=== PATIENT | female | born 1965 | race Caucasian/White ===

== ENCOUNTER → 2016-12-21 | Outpatient (CLI) | payer OTHER ==
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
== END | disposition home or self-care (01) ==
LOC: C.NEUR 21:00
PROVIDERS: ATTEND Family Medicine
DX: R06.83 Snoring (principal); E66.01 Morbid (severe) obesity due to excess calories; G47.00 Insomnia, unspecified

== ENCOUNTER → 2017-02-07 | Outpatient (CLI) | payer OTHER ==
--- NOTE | 2017-02-07 10:38 | DIAGNOSTIC IMAGING REPORT ---
DOUBLE CONTRAST UPPER GI SERIES CLINICAL HISTORY: Dysphagia. Recent esophageal dilatation. Hiatal hernia. COMPARISON STUDY: No priors. TECHNIQUE: A standard air contrast upper GI series was performed. Spot images of the esophagus and stomach were obtained in multiple obliquities both upright and prone. FINDINGS: The patient swallowed barium without difficulty. The esophagus is structurally normal without evidence of intrinsic or extrinsic mass. The esophageal mucosal pattern is normal. No gastroesophageal reflux was elicited by having the patient perform the Valsalva maneuver. The gastroesophageal junction distends normally. There is a large paraesophageal hiatal hernia. The gastroesophageal junction appears normal in position. The distal stomach is normal in configuration. The stomach is normally distensible. No mass or ulceration is identified. There was no evidence of gastritis. The duodenal bulb and sweep are unremarkable. Fluoroscopy time: 1.8 minutes Fluoroscopic images: 21 IMPRESSION: 1. There is a large paraesophageal hiatal hernia. 2. The esophagus is normal in appearance. Electronically signed by: Wlofgang Petersen M.D. 02/07/2017 10:36 AM Dictated Date/Time: 02/07/2017 10:34 AM
== END | disposition home or self-care (01) ==
LOC: C.RAD 09:54
PROVIDERS: ATTEND Surgery
DX: K44.9 Diaphragmatic hernia without obstruction or gangrene (principal)

== ENCOUNTER → 2017-06-27 | Outpatient (CLI) | payer OTHER ==
--- NOTE | 2017-06-27 08:42 | DIAGNOSTIC IMAGING REPORT ---
SINGLE CONTRAST UPPER GI SERIES CLINICAL HISTORY: Follow-up status post hiatal hernia repair. COMPARISON STUDY: Fluoroscopic upper GI series dated 02/07/2017. TECHNIQUE: A single contrast upper GI series was performed. Spot images of the esophagus and stomach were obtained in multiple obliquities both upright and prone. FINDINGS: The patient swallowed barium without difficulty. The esophagus is structurally normal without evidence of intrinsic or extrinsic mass. Mild dysmotility is seen in the mid to distal third. The esophageal mucosal pattern is normal. No gastroesophageal reflux was elicited by having the patient perform the Valsalva maneuver. The gastroesophageal junction distends normally. The stomach is normal in configuration and demonstrates normal distensibility. The hiatal hernia seen on 02/07/2017 has resolved. There is no evidence of mass or ulceration. There is evidence of contrast leakage or stricturing. The duodenal bulb and sweep are unremarkable. Fluoroscopy time: 1.8 minutes Fluoroscopic images: 27 IMPRESSION: 1. The hiatal hernia seen on 02/07/2017 has been repaired. There is no evidence of contrast leakage or stricture. 2. Mild esophageal dysmotility. Electronically signed by: Wolfgang Petersen M.D. 06/27/2017 8:41 AM Dictated Date/Time: 06/27/2017 8:38 AM
== END | disposition home or self-care (01) ==
LOC: C.RAD 08:07
PROVIDERS: ATTEND Physician Assistant
DX: Z98.890 Other specified postprocedural states (principal); Z87.19 Personal history of other diseases of the digestive system; E66.9 Obesity, unspecified; K22.4 Dyskinesia of esophagus

== ENCOUNTER 2023-09-20 16:27 | Observation (INO) ==
--- NOTE | 2023-09-20 16:40 | ED Triage Note ---
Date of Service September 20, 2023 Provider in Triage Author: Martín Carrillo History of Present Illness This patient was briefly evaluated while in triage. An abbreviated physical exam was performed. This patient is a 58-year-old Female who presents to the ED for evaluation of co nfusion. History provided by friend. Patient was sitting in car in driveway. called friend at 3:12 pm as patient didn't remember anything. Patient unsure how she got dressed today. No fever. She is perseverating with questions and appears unwell. Physical Exam Limited Triage Exam: VITALS: Vitals are noted on the nurse's note and reviewed by myself. Vital signs stable. GENERAL: White female who seems confused on arrival HEART: Regular rate and rhythm without murmurs gallops or rubs. LUNGS: Clear to auscultation bilaterally without wheezes, rales or rhonchi. NEURO: Patient was not oriented. Initial orders for labs and / or imaging were placed and patient was placed in the waiting area until a bed is available. Please see further documentation for the full ED course. MDM / Impression Impression Impression: Amnesia memory loss
[2023-09-20] MEDS ORDERED: OPTIRAY 320 125ml IV ONE (16:46)
--- NOTE | 2023-09-20 16:59 | Emergency Department Note ---
Impression & Plan Amnesia memory loss ED Provider Note Provider: Martín Carrillo MD DATE OF SERVICE: 09/20/2023 CHIEF COMPLAINT: Confusion HISTORY OF PRESENT ILLNESS: Patient is a 58-year-old female history of hypertension presenting here brought by friend with acute onset of confusion this afternoon. Patient herself does not remember many details. States has not been getting dressed or what she is doing. Does not remember the recent holidays. Talked with her friend Lisseth who brought her here. 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 Friend found the patient in her car in her driveway. Patient was asking repetitive questioning and does not seem to have any short or medium term memory. Patient and friend confirm no slurred speech. Denies any pain. No new numbness or tingling. No movement issues and is ambulatory. According to friend who is on the phone of the , confirmed that they have talked around 1 PM this afternoon and the patient was acting fine on the phone at that time. No history of stroke. Made a stroke alert from triage. PAST MEDICAL HISTORY: As noted above MEDICATIONS: Reviewed home medications SOCIAL HISTORY: PHYSICAL EXAM: GENERAL: alert on stretcher. Little bit tearful as he understands he cannot remember much. Head: normocephalic and atraumatic EYES: No injection, discharge or icterus. PERRL, EOMI. NECK: Trachea midline. Supple. ENT: Mucous membranes pink and moist. Pharynx without erythema or exudate. LUNGS: Airway patent. No retractions. Breath sounds clear with good air entry bilaterally. HEART: Regular rate and rhythm. No chest wall tenderness ABDOMEN: Soft and non-tender, without guarding or rebound. SKIN: Acyanotic, warm, dry, without rashes EXTREMITIES: Without swelling, tenderness or deformity NEUROLOGICAL: No focal deficits. No aphasia. No facial droop or slurred speech. Normal strength and tone in the extremities. Sensation to gross touch normal. Ambulatory. EK bpm normal sinus rhythm. No PVC or PAC. No acute ST segment elevation or depression appreciated. QTc 430. CONTINUOUS CARDIAC MONITORING: was ordered and showed a heart rate of 80s-90s bpm in normal sinus rhythm Patient's laboratory studies and imaging reviewed. Differential includes Infection, dehydration, metabolic abnormality, hypo/hyperglycemia, electrolyte disturbance, anemia, hypoxia, cardiac sources, intracerebral event, toxicologic, neurologic, as well as other pathologies. IMPRESSION/MEDICAL DECISION MAKING: Initial evaluated the patient in CT scanner. No focal neurological deficits in the extremities. No slurred speech. No gaze preference or deviation. Patient however has alteration of memory. Does not remember recent [place] holiday or how she got here or getting dressed. Patient's friend who brought her here confirms the patient repetitively asked what was going on etc. in the car ride here. Seems to be last known well around 1 PM from what I can gather from her friend and . Discussed with telestroke from [facility]. CT and CT angiograms obtained. Broad metabolic and infectious workup pursued but does not appear meningitic. Does not appear intoxicated metabolically UDS was sent. Somewhat tearful here she knows she has memory issues. Does not know her age or the current month but does not know her date of . Does not remember her anniversary but does know her home address. In discussion with telestroke they would not recommend thrombolysis as she is outside the 3-hour window at this time with a low NIH of approximately 2. Stroke also entertain possible TGA as diagnosis. Updated the patient and friend at bedside and the patient does not remember approximately 20 minutes ago being in the CT scanner. CT and CTAs are reassuring per radiology report. No severe leukocytosis or anemia on blood work. Normal VBG. Normal glucose and ammonia level. Telestroke to evaluate via the cart. Has been significant stress at home. 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 Question if this is TGA telestroke agrees likely. Evidently has been a good amount of stress at home for the patient recently. Will bring her in to complete stroke workup especially she is not back to baseline. 1 dose of aspirin here. Again no thrombolytics given less likely thought this is a stroke and her time window. and patient agreeable with this. Discussed with the hospitalist team DIAGNOSIS: Acute memory loss DISPOSITION: Hospitalist will evaluate Patient was agreeable with this plan. Past Med/Surg History Medical History (Updated 09/20/23 @ 20:48 by Judy Batres DO) Chest pain Obesity Osteoarthritis Osteopenia Mood disorder Hiatal hernia HTN (hypertension) Surgical History H/O tubal ligation S/P tonsillectomy and adenoidectomy H/O: hysterectomy History of repair of hiatal hernia Family History Other Cancer Diabetes Heart disease Hypertension Social History (Updated 09/20/23 @ 20:47 by Judy Batres DO) Smoking Status: Never smoker Tobacco Type: Cigarettes Second Hand Exposure: No; Do You Dip or Chew Tobacco: No; Hx Alcohol Use: Yes (occasional summer time drinker.) Alcohol type: wine Alcohol Intake Frequency: Monthly or Less Hx Substance Use: No Preferred Language: [place] Citizen Communication Ability: Effective Soaking Room Operator Required: No Beliefs That Will Affect Care: None Current Living Situation: Spouse current occupational status: employed 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 Feels Safe at Home: Yes Assistive Devices: None Allergies Allergies Allergy/AdvReac Type Severity Reaction Status Date / Time nitrofurantoin Allergy Intermediate Rash Unverified 09/20/23 19:33 [From Macrodantin] Opioids - Morphine Analogues AdvReac Intermediate "SENSITIVE Unverified 09/20/23 19:33 TO NARCS:HEAD WANTS TO EXPLODE,FEELS VERY Ill Home Meds Home Medications Medication Instructions Recorded Confirmed duloxetine 30 mg capsule,delayed 30 mg PO QAM 06/20/23 09/20/23 release metoprolol succinate 50 mg 50 mg PO HS 06/20/23 09/20/23 tablet,extended release 24 hr ondansetron 4 mg disintegrating 4 mg PO Q6H PRN Nausea 06/20/23 09/20/23 tablet semaglutide (weight loss) 2.4 0 mg subcut WK 09/20/23 09/20/23 mg/0.75 mL subcutaneous pen injector (Pareshvmariaelena) Previous Rx's Medication Instructions Recorded valsartan 160 mg tablet 80 mg (1/2 x 160 mg) PO QAM #30 06/21/23 tabs Results & Data (ED) Vital Signs Vital Signs - 24 hr 09/20/23 16:36 09/20/23 16:40 09/20/23 16:40 Temperature 36.6 C Temperature Source Temporal Artery Scan Pulse Rate 95 H Pulse Rate [Apical] 88 Pulse Rate from SpO2 Sensor Pulse Rhythm Regular Pulse Strength Normal Respiratory Rate 20 18 Respiratory Effort / Characteristics Non-Labored Spontaneous Non-Labored Spontaneous Respiratory Depth Normal Normal Respiratory Pattern Regular Regular Blood Pressure 151/109 H Blood Pressure [Right Arm] 154/101 H Blood Pressure Mean 123 Blood Pressure Mean [Right Arm] 118 Blood Pressure Position Sitting Blood Pressure Position [Right Arm] Sitting Pulse Oximetry 96 97 96 Oxygen Delivery Method Room Air Room Air Room Air Sepsis Recent Fever Within 48 Hours No Sepsis New/Unexplained Change in Mental Status Yes Sepsis Action Taken by Nursing No Action Required 09/20/23 17:01 09/20/23 17:05 09/20/23 17:19 Temperature Temperature Source Pulse Rate 89 88 86 Pulse Rate [Apical] Pulse Rate from SpO2 Sensor 89 82 Pulse Rhythm Pulse Strength Respiratory Rate 16 18 Respiratory Effort / Characteristics Respiratory Depth Respiratory Pattern Blood Pressure 154/101 H 160/130 H Blood Pressure [Right Arm] Blood Pressure Mean 118 140 Blood Pressure Mean [Right Arm] Blood Pressure Position Blood Pressure Position [Right Arm] Pulse Oximetry 96 96 Oxygen Delivery Method Room Air Room Air Sepsis Recent Fever Within 48 Hours Sepsis New/Unexplained Change in Mental Status Sepsis Action Taken by Nursing 09/20/23 17:30 09/20/23 17:45 09/20/23 18:00 Temperature Temperature Source Pulse Rate 100 H 78 81 Pulse Rate [Apical] Pulse Rate from SpO2 Sensor 89 77 81 Pulse Rhythm Pulse Strength Respiratory Rate 16 16 19 Respiratory Effort / Characteristics Respiratory Depth Respiratory Pattern Blood Pressure 149/98 H 135/94 157/105 H Blood Pressure [Right Arm] Blood Pressure Mean 115 107 122 Blood Pressure Mean [Right Arm] Blood Pressure Position Blood Pressure Position [Right Arm] Pulse Oximetry 97 96 96 Oxygen Delivery Method Room Air Room Air Room Air Sepsis Recent Fever Within 48 Hours Sepsis New/Unexplained Change in Mental Status Sepsis Action Taken by Nursing 09/20/23 18:15 Temperature Temperature Source Pulse Rate 85 Pulse Rate [Apical] Pulse Rate from SpO2 Sensor 84 Pulse Rhythm Pulse Strength Respiratory Rate 19 Respiratory Effort / Characteristics Respiratory Depth Respiratory Pattern Blood Pressure 164/108 H Blood Pressure [Right Arm] Blood Pressure Mean 126 Blood Pressure Mean [Right Arm] Blood Pressure Position Blood Pressure Position [Right Arm] Pulse Oximetry 94 Oxygen Delivery Method Room Air Sepsis Recent Fever Within 48 Hours Sepsis New/Unexplained Change in Mental Status Sepsis Action Taken by Nursing Laboratory Data 09/20/23 16:58 09/20/23 16:58 Lab Results 09/20/23 09/20/23 Range/Units 16:58 17:01 WBC 9.43 (4.8-10.8) K/ul RBC 5.59 H (4.20-5.40) M/uL Hgb 16.4 H (12.0-16.0) g/dl Hct 47.3 H (37.0-47.0) % MCV 84.6 (80.0-100.0) fL MCH 29.3 (25.0-34.0) pg MCHC 34.7 (32.0-36.0) g/dL RDW Std Deviation 40.9 (36.4-46.3) fL RDW Coeff of Maria C 13.2 (11.5-14.5) % Plt Count 276 (130-400) K/uL MPV 10.6 (9.4-12.4) fL Immature Gran % (Auto) 0.2 % Neut % (Auto) 63.0 % Lymph % (Auto) 28.2 % [place] % (Auto) 6.9 % Eos % (Auto) 1.3 % Baso % (Auto) 0.4 % Neut # (Auto) 5.94 (1.40-6.50) K/uL Lymph # (Auto) 2.66 (1.20-3.40) K/uL [place] # (Auto) 0.65 H (0.11-0.59) K/uL Eos # (Auto) 0.12 (0.00-0.50) K/uL Baso # (Auto) 0.04 (0.00-0.20) K/uL Immature Gran # (Auto) 0.02 (0.01-0.20) K/uL PT 10.6 (9.0-12.0) Seconds INR 1.0 (0.9-1.1) APTT 29 (21-31) Seconds PTT Ratio 1.0 VBG pH 7.37 (7.36-7.41) VBG pCO2 50 (38-50) mmHg VBG pO2 < 20 mmHg VBG HCO3 29 mmol/L VBG O2 Saturation < 60.0 % VBG Base Excess 2.7 mEq/L Carboxyhemoglobin < 0.3 % THgb Sodium 134 L (136-145) mmol/L Potassium 3.6 (3.5-5.1) mmol/L Chloride 99 (98-107) mmol/L Carbon Dioxide 28 (21-32) mmol/L Anion Gap 7 (3-11) BUN 10 (6-23) mg/dl Creatinine 0.84 (0.6-1.2) mg/dl Est Cr Clr Drug Dosing 80.8 ml/min Est GFR ( Amer) 88.8 ml/min Est GFR (Non-Af Amer) 76.6 ml/min BUN/Creatinine Ratio 11.9 (10-20) Glucose 90 (70-99(Fasting)) mg/dl POC Glucose 94 (70-99) mg/dl Calcium 9.3 (8.6-10.3) mg/dl Magnesium 1.9 (1.7-2.4) mg/dl Total Bilirubin 0.4 (0.2-1.0) mg/dl AST 17 (13-39) U/L ALT 10 (7-52) U/L Alkaline Phosphatase 71 (34-104) U/L Ammonia 22.0 (18-72) umol/L Troponin I High Sens 3.6 (0-14) pg/ml Total Protein 7.4 (6.0-8.3) gm/dl Albumin 4.2 (3.4-5.0) gm/dl Globulin 3.2 (2.5-4.0) gm/dl Albumin/Globulin Ratio 1.3 (0.9-2) Ethyl Alcohol mg/dL < 10.0 (<10.0) mg/dl Lyme Disease IgG Ab Negative (Negative) Lyme Disease IgM Ab Negative (Negative) Blood Type B Negative Antibody Screen NEGATIVE Administered Medications Discontinued Medications Aspirin (Aspirin Chew 324 Mg) 324 mg PO NOW STA Stop: 09/20/23 18:27 Last Admin: 09/20/23 18:46 Dose: 324 mg Documented By: VIKI Ioversol (Optiray 320 125ml) 117 ml IV ONCE ONE Stop: 09/20/23 16:47 Last Admin: 09/20/23 16:47 Dose: 117 ml Documented By: EDK Imaging Data Radiologist's Impression: Head CT 09/20/23 16:40 CT head/brain wo con, CT angio head w con CLINICAL HISTORY: 58 years-old Female with neuro deficit, acute stroke suspected. Acute stroke like symptoms TECHNIQUE: Multiple axial CT images of the head were obtained without contrast. CT exam is obtained along with 3-D coronal and sagittal reformatted metastases. All measurements were obtained according to NASCET criteria. A dose lowering technique was utilized adhering to the principles of ALARA. COMPARISON: CTA of the neck of same day. FINDINGS: CT HEAD: No acute intracranial hemorrhage, midline shift, intracranial mass, hydrocephalus, territorial ischemia or abnormal extra-axial collection. Senescent calcifications of the basal ganglia. The calvarium is intact. The paranasal sinuses, mastoid air cells, and middle ear cavities are clear. CTA: No aneurysm, dissection, high-grade stenosis or arterial occlusion. Atherosclerosis of the cavernous, clinoid and supraclinoid segments resulting in multifocal stenosis of up to 50%. Femoral venous sinuses are patent. IMPRESSION: 1. No acute intracranial abnormality. 2. Unremarkable CTA. ACT 112: Negative or not required by law. The above report was generated using voice recognition software. It may contain grammatical, syntax or spelling errors. Electronically signed by: Rosas Ovalles M.D. 09/20/2023 5:03 PM Head CTA 09/20/23 16:40 CT head/brain wo con, CT angio head w con CLINICAL HISTORY: 58 years-old Female with neuro deficit, acute stroke suspected. Acute stroke like symptoms TECHNIQUE: Multiple axial CT images of the head were obtained without contrast. CT exam is obtained along with 3-D coronal and sagittal reformatted metastases. All measurements were obtained according to NASCET criteria. A dose lowering technique was utilized adhering to the principles of ALARA. COMPARISON: CTA of the neck of same day. FINDINGS: CT HEAD: No acute intracranial hemorrhage, midline shift, intracranial mass, hydrocephalus, territorial ischemia or abnormal extra-axial collection. Senescent calcifications of the basal ganglia. The calvarium is intact. The paranasal sinuses, mastoid air cells, and middle ear cavities are clear. CTA: No aneurysm, dissection, high-grade stenosis or arterial occlusion. Atherosclerosis of the cavernous, clinoid and supraclinoid segments resulting in multifocal stenosis of up to 50%. Femoral venous sinuses are patent. IMPRESSION: 1. No acute intracranial abnormality. 2. Unremarkable CTA. ACT 112: Negative or not required by law. The above report was generated using voice recognition software. It may contain grammatical, syntax or spelling errors. Electronically signed by: Rosas Ovalles M.D. 09/20/2023 5:03 PM Neck CTA 09/20/23 16:40 CT angio neck with con CLINICAL HISTORY: neuro deficit, acute stroke suspected TECHNIQUE: CT angiography of the neck was performed following intravenous administration of iodinated contrast. Coronal and sagittal MIPS were obtained from the axial data set and were submitted for review. Automated dose lowering techniques and/or adjustment according to patient size were utilized for this examination. All measurements were calculated based on NASCET criteria. CT DOSE: 1075.96 mGy.cm Comparison: None available at the time of this dictation. FINDINGS: Lungs and soft tissues are unremarkable. CTA Neck: A 3 vessel aortic arch is shown. There is no significant atherosclerotic plaque in the aortic arch or the origins of the innominate, left common carotid, and left subclavian arteries. The common carotid, external carotid, cervical segments of the internal carotid arteries, and the cervical segments of the vertebral arteries are patent without hemodynamically significant stenosis. The left vertebral artery is dominant. IMPRESSION: No occlusion, hemodynamically significant stenosis, or dissection in the major cervical arteries. Assessment of stenosis of the internal carotid arteries is based on NASCET criteria. ACT 112: Negative or not required by law. Electronically signed by: Cayetano Griffith M.D. 09/20/2023 5:11 PM Discharge Plan Visit Data Chief Complaint: Stroke Alert Stated Complaint: CONFUSION, CAN'T REMEMBER GETTING TODAY ED Provider: Martín Carrillo Discharge Problem: Amnesia memory loss Patient Disposition: Being Evaluated by Hospitalist
--- NOTE | 2023-09-20 17:04 | CT Scan Report ---
CT head/brain wo con, CT angio head w con CLINICAL HISTORY: 58 years-old Female with neuro deficit, acute stroke suspected. Acute stroke like symptoms TECHNIQUE: Multiple axial CT images of the head were obtained without contrast. CT exam is obtained a long with 3-D coronal and sagittal reformatted metastases. All measurements were obtained according t o NASCET criteria. A dose lowering technique was utilized adhering to the principles of ALARA. COMPARISON: CTA of the neck of same day. FINDINGS: CT HEAD: No acute intracranial hemorrhage, midline shift, intracranial mass, hydrocephalus, territorial ischem ia or abnormal extra-axial collection. Senescent calcifications of the basal ganglia. The calvarium is intact. The paranasal sinuses, mastoid air cells, and middle ear cavities are clear . CTA: No aneurysm, dissection, high-grade stenosis or arterial occlusion. Atherosclerosis of the cavernous, clinoid and supraclinoid segments resulting in multifocal stenosis of up to 50%. Femoral venous sinu ses are patent. IMPRESSION: 1. No acute intracranial abnormality. 2. Unremarkable CTA. ACT 112: Negative or not required by law. The above report was generated using voice recognition software. It may contain grammatical, syntax o r spelling errors. Electronically signed by: Rosas Ovalles M.D. 09/20/2023 5:03 PM
[2023-09-20 17:10] LABS: Base Excess VBG 2.7 mEq/L; HCO3 VBG 29 mmol/L; Oxygen Saturation VBG < 60.0 %; PCO2 VBG 50 mmHg (38-50); PO2 VBG < 20 mmHg; pH VBG 7.37 (7.36-7.41)
--- NOTE | 2023-09-20 17:12 | CT Scan Report ---
CT angio neck with con CLINICAL HISTORY: neuro deficit, acute stroke suspected TECHNIQUE: CT angiography of the neck was performed following intravenous administration of iodinated contrast. Coronal and sagittal MIPS were obtained from the axial data set and were submitted for rev iew. Automated dose lowering techniques and/or adjustment according to patient size were utilized fo r this examination. All measurements were calculated based on NASCET criteria. CT DOSE: 1075.96 mGy.cm Comparison: None available at the time of this dictation. FINDINGS: Lungs and soft tissues are unremarkable. CTA Neck: A 3 vessel aortic arch is shown. There is no significant atherosclerotic plaque in the aor tic arch or the origins of the innominate, left common carotid, and left subclavian arteries. The co mmon carotid, external carotid, cervical segments of the internal carotid arteries, and the cervical segments of the vertebral arteries are patent without hemodynamically significant stenosis. The left vertebral artery is dominant. IMPRESSION: No occlusion, hemodynamically significant stenosis, or dissection in the major cervical arteries. Assessment of stenosis of the internal carotid arteries is based on NASCET criteria. ACT 112: Negative or not required by law. Electronically signed by: Cayetano Griffith M.D. 09/20/2023 5:11 PM
[2023-09-20 17:13] LABS: Basophils # (auto) 0.04 K/uL (0.00-0.20); Basophils % (auto) 0.4 %; Eosinophils # (auto) 0.12 K/uL (0.00-0.50); Eosinophils % (auto) 1.3 %; Hematocrit (blood only) 47.3 % (37.0-47.0); Hemoglobin 16.4 g/dl (12.0-16.0); Immature Granulocytes # (auto) 0.02 K/uL (0.01-0.20); Immature Granulocytes % (auto) 0.2 %; Lymphocytes # (auto) 2.66 K/uL (1.20-3.40); Lymphocytes % (auto) 28.2 %; Mean Corpuscular Hemoglobin 29.3 pg (25.0-34.0); Mean Corpuscular Hgb Conc 34.7 g/dL (32.0-36.0); Mean Corpuscular Volume 84.6 fL (80.0-100.0); Mean Platelet Volume 10.6 fL (9.4-12.4); Monocytes # (auto) 0.65 K/uL (0.11-0.59); Monocytes % (auto) 6.9 %; Neutrophils # (auto) 5.94 K/uL (1.40-6.50); Platelet Count 276 K/uL (130-400); RDW Coefficient of Variation 13.2 % (11.5-14.5); RDW Standard Deviation 40.9 fL (36.4-46.3); Red Blood Count 5.59 M/uL (4.20-5.40); White Blood Count 9.43 K/ul (4.8-10.8)
[2023-09-20 17:26] LABS: Partial Thromboplastin Time 29 Seconds (21-31); Prothrombin Time 10.6 Seconds (9.0-12.0)
[2023-09-20 18:00] LABS: Lyme Ab IgG w/WB Rflx Negative (Negative); Lyme Ab IgM w/WB Rflx Negative (Negative)
[2023-09-20 18:05] LABS: Adenovirus PCR Not Detected (NotDetected); Bordetella parapertussis PCR Not Detected (NotDetected); Bordetella pertussis PCR Not Detected (NotDetected); Chlamydia pneumoniae PCR Not Detected (NotDetected); Coronavirus 229E PCR Not Detected (NotDetected); Coronavirus CoV-2 (COVID19)PCR Not Detected (NotDetected); Coronavirus HKU1 PCR Not Detected (NotDetected); Coronavirus NL63 PCR Not Detected (NotDetected); Coronavirus OC43PCR Not Detected (NotDetected); Human Metapneumovirus PCR Not Detected (NotDetected); Influenza A PCR Not Detected (NotDetected); Influenza B PCR Not Detected (NotDetected); Mycoplasma pneumoniae PCR Not Detected (NotDetected); Parainfluenza Virus 1 PCR Not Detected (NotDetected); Parainfluenza Virus 2 PCR Not Detected (NotDetected); Parainfluenza Virus 3 PCR Not Detected (NotDetected); Parainfluenza Virus 4 PCR Not Detected (NotDetected); Respiratory Syncytial VirusPCR Not Detected (NotDetected); Rhinovirus/Enterovirus PCR Not Detected (NotDetected)
[2023-09-20 18:25] LABS: Albumin Level 4.2 gm/dl (3.4-5.0); Bilirubin,Total 0.4 mg/dl (0.2-1.0); Calcium 9.3 mg/dl (8.6-10.3); Magnesium 1.9 mg/dl (1.7-2.4); Potassium 3.6 mmol/L (3.5-5.1)
[2023-09-20] MEDS ORDERED: ASPIRIN CHEW 324 MG PO STA (18:26)
[2023-09-20 18:31] LABS: Albumin Globulin Ratio 1.3 (0.9-2); BUN Creatinine Ratio 11.9 (10-20); Creatinine Clr Calc Pharmacy 80.8 ml/min; Est GFR (African American) 88.8 ml/min; Est GFR (Non-African American) 76.6 ml/min; Globulin 3.2 gm/dl (2.5-4.0); Total Protein 7.4 gm/dl (6.0-8.3)
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
[2023-09-20 21:13] LABS: Troponin I High Sensitivity 3.6 pg/ml (0-14)
[2023-09-20 22:58] LABS: Appearance Urine Clear (Clear); Bacteria Urine Automated Negative (Negative); Bilirubin Urine Negative (Negative); Blood Urine Negative (Negative); Color Urine Yellow; Glucose Urine UA Negative (Negative); Ketones Urine Trace (Negative); Leukocyte Esterase Urine 1+ (Negative); Nitrite Urine Negative (Negative); Protein Urine Negative (Negative); RBC Urine Automated 0-4 /hpf (0-4); Specific Gravity Urine > 1.045 (1.000-1.030); Urobilinogen Urine Negative (Negative)
--- OUTSIDE RECORDS SUMMARY | 2023-09-20 23:28 | External Medical Summary | Summary of Care ---
Author Name Unknown Organization [facility] Address [address] [facility] [facility] [place] [address] Phone [phone] Care Team Providers Care Deputy District Customs Director Name Role Phone Unavailable Primary Care Provider Unavailabl e Encounter Details Date Type Department Care Team Description 06/21/2023 Result Scan Unspecified Department Gómez Carl, DO [address] [place] [address] <No scans attached> Allergies Active Allergy Reactions Severity Noted Date Comments Hydrocodone-Acetaminophen 09/18/2010 Severe headache Nitrofurantoin Rash 03/20/2005 nausea Morphine And Related 03/20/2005 headache Propoxyphene Napsylate 03/20/2005 severe pressure and headache documented as of this encounter (statuses as of 06/24/2023) Medications Medication Sig Dispensed Refills Start Date End Date Status Ibuprofen 200 MG Capsule Take 200 mg by mouth every 4 hours as needed for Pain. 0 Active fluticasone (FLONASE) 50 MCG/ACT nasal sprayIndications:Si nus headache Administer 2 Sprays into each nostril daily. 1 Inhaler 1 08/20/2018 Active cyclobenzaprine (FLEXERIL) 5 MG TabletIndications:M uscle spasms of neck Take 1 Tab by mouth 3 times a day as needed for Muscle spasms. 30 Tab 0 09/02/2018 Active Cholecalciferol (VITAMIN D-3) 5000 units Tablet Take 1 Tab by mouth daily. 0 11/20/2018 Active CYANOCOBALAMIN (VITAMIN B-12) 100 MCG Tablet Take 5,000 units daily 0 11/20/2018 Active Glucosamine-Chondro it-Vit C-Mn (GLUCOSAMINE CHONDR 500 COMPLEX) Capsule Take 1 Cap by mouth 2 times a day. 0 Active losartan (COZAAR) 50 MG TabletIndications:H TN, goal below 130/80 TAKE 1 TABLET BY MOUTH EVERY DAY 90 Tab 1 05/12/2019 Active venlafaxine XR (EFFEXOR XR) 75 MG [id number]:Anx iety and depression Take 1 Cap by mouth daily. Do not cut, crush or chew 90 Cap 1 06/11/2019 Active documented as of this encounter (statuses as of 06/24/2023) Active Problems Problem Noted Date Generalized OA 01/14/2019 Neck pain 01/14/2019 Anxiety and depression 01/14/2019 HTN, goal below 130/80 09/02/2018 S/P repair of paraesophageal hernia 03/24 Transient insomnia 05/15/2011 BMI 35-39 ISOLATED (SEE ACTUAL BMI) 02/21 Overview: Per Obesity Protocol, #19 documented as of this encounter (statuses as of 06/24/2023) Resolved Problems Problem Noted Date Resolved Date Paraesophageal hernia 03/14/2017 03/14/2017 Generalized anxiety disorder 05/15/2011 Other chest pain 06/10/2008 04/11/2017 ADVANCE DIRECTIVE INFORMATION 09/26/2005 Overview: No, Advance Directive brochure offered , patient declined. documented as of this encounter (statuses as of 06/24/2023) Immunizations Name Administration Dates Next Due PPD 09/18/2017,09/10/2017,08/12/2006 SEASONAL INFLUENZA, PF, 6 M & Above, IM , (FLULAVAL or FLUZONE) 09/06/2017 Seasonal Influenza, Quadriva lent, No Preserve, IM 07/17/2018 Seasonal Influenza, Split, I IV3, With Preserve, Inj 07/02/2009 TD - Tetanus/Diptheria (ADULT) 08/20/2006 TDAP (age 11 and older)(Adacel) 06/23/2010 documented as of this encounter Social History Tobacco Use Types Packs/Day Years Used Date Smoking Tobacco: Never Smokeless Tobacco: Never Alcohol Use Standard Drinks/Week Comments Yes 0 (1 standard drink = 0.6 oz pur e alcohol) rarely Sex Assigned at Date Recorded Not on file documented as of this encounter Plan of Treatment Scheduled Procedures Name Priority Associated Diagnoses Date/Ti me COLONOSCOPY FLEXIBLE PROXIMAL DIAGNOSTIC Recall Colon cancer screening Health Maintenance Due Date Last Done Comments Hepatitis B (1 of 3 - 3-dose series) 1965 COVID-19 Vaccine (#1) 01/22/1966 HIV Screening 1980 Albumin/Creatinine Ratio 1983 Hepatitis C Screening 1983 Cologuard 2010 Sigmoidoscopy 2010 Zoster Vaccines (1 of 2) 2015 Fecal Occult Blood Test 06/05/2017 06/05/2016 Mammogram 08/05/2019 08/05/2018, 03/24, 02/03/2015, Additional history exists Depression Screening 09/02/2019 09/02/2018 Lipid Panel 01/02/2020 01/01/2015, 06/10/2008 GFR 06/06/2020 06/06/2019, 02/22, 11/20/2018, Additional history exists DTaP,Tdap,and Td Vaccines (2 - Td or Tdap) 06/23/2020 06/23/2010, 08/20/2006 Diabetes Screening 06/06/2022 06/06/2019, 0 03/17/2019, 11/20/2018, Additional history exists Influenza Vaccine (FLU shot) (#1) 2023 06/26/2019, 07/17/2018, 09/06/2017, Additional history exists Colonoscopy 08/06/2027 08/06/2017, 08/06/2017 Colorectal Cancer Screening 08/06/2027 GARDASIL-HPV IMMUNIZATION SERIES Aged Out No longer eligible based on patient's age to complete this topic MENINGOCOCCAL (MENACTRA/MENVEO) Aged Out No longer eligible based on patient's age to complete this topic Pneumococcal Vaccine: Pediatrics (0 to 5 Years) and At-Risk Patients (6 to 64 Years) Aged Out No longer eligible based on patient's age to complete this topic documented as of this encounter Medical Devices Implanted Type Area Infant Babysitter Device Identifier Shelf Expiration Date Model / Serial / Lot Alloderm 2x4 Sheet [id number] ( 8 Units ) - [id number] Implanted:Qty : 8 on 03/13/2017 by Kota Erickson MD at OR [facility] [place] Tissue - Human N/A: Esophagus [employer] 08/13/2018 [id number] / / [id number] documented as of this encounter Procedures Procedure Name Priority Date/Time Associated Diagnosis Comments ECHOCARDIOLOGY SCANNED RESULT 06/21/2023 documented in this encounter Results * ECHOCARDIOLOGY SCANNED RESULT (06/21/2023) 06/21/2023 Gómez Carl DO ECHOCARDIOLOGY documented in this encounter Advance Directives Latest Code Status on File Code Status Date Activated Date Inactivated Comments Full Code 03/13/2017 3:37 PM 03/14/2017 6:32 PM This order reflects the patients wishes and were consensually agreed upon.
[2023-09-20 23:35] LABS: Amphetamines+Metham, Urine Neg (Neg); Barbiturates, Urine Neg (Neg); Benzodiazepine, Urine Neg (Neg); Cocaine, Urine Neg (Neg); MDMA (Ecstacy), Urine Neg (Neg); Marijuana, Urine Neg (Neg); Methadone, Urine Neg (Neg); Opiate, Urine Neg (Neg); Phencyclidine, Urine Neg (Neg)
--- NOTE | 2023-09-21 07:45 | Electrocardiogram Report ---
Test Reason : Blood Pressure : / mmHG Vent. Rate : 088 BPM Atrial Rate : 088 BPM P-R Int : 152 ms QRS Dur : 078 ms QT Int : 356 ms P-R-T Axes : 042 008 033 degrees QTc Int : 430 ms Normal sinus rhythm Normal ECG When compared with ECG of 21-JUN-2023 06:30, No significant change was found Confirmed by Luke Walters ([id number]) on 09/21/2023 7:45:01 AM Referred By: REFERRED SELF Confirmed By:Luke Walters
[2023-09-21] MEDS: ASPIRIN 81 MG CHEW PO SCH (08:52)
[2023-09-21] MEDS: DULoxetine HCL 30 MG CAP PO SCH (08:52)
[2023-09-21] MEDS: METOPROLOL SUCC 50MG EXT REL TAB PO SCH ×2 (08:52→21:02)
[2023-09-21] MEDS: ENOXAPARIN INJ 40 MG/0.4 ML SYR SQ SCH (08:53)
[2023-09-21] MEDS: VALSARTAN 80 MG TAB PO SCH (08:53)
[2023-09-21] MEDS ORDERED: ACETAMINOPHEN 500 MG TAB PO PRN (09:03)
[2023-09-21] MEDS ORDERED: GADOBUTROL 65ML VIAL IV ONE (11:55)
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
--- NOTE | 2023-09-21 14:56 | Magnetic Resonance Report ---
MR brain wo/w con HISTORY: 58 years-old Female acute confusion acutely altered mental status COMPARISON: Head CT 09/20/2023 TECHNIQUE: Multiplanar multisequence MRI of the brain was obtained with and without the use of IV con trast. FINDINGS: There is no restricted diffusion. The midline structures appear unremarkable. Partially empty sella. Degenerative changes of the cervical spine. No acute intracranial hemorrhage, midline shift, abnormal extra-axial collection, hydrocephalus or intra-axial mass. No pathologic blooming artifact identifie d. Cerebral venous sinuses and major arterial flow voids appear patent. Skull, orbits and soft tissue s are unremarkable. Bilateral lens repair. Mastoid air cells and paranasal sinuses are clear. There are a few punctate foci of T2/FLAIR prolongation within the subcortical white matter, likely of no clinical significance. No abnormal enhancement. IMPRESSION: 1. No acute intracranial abnormality. No acute or subacute infarct. 2. No abnormal enhancement. ACT 112: Negative or not required by law. The above report was generated using voice recognition software. It may contain grammatical, syntax o r spelling errors. Electronically signed by: Rosas Ovalles M.D. 09/21/2023 2:53 PM
[2023-09-21] MEDS: ACETAMINOPHEN 500 MG TAB PO PRN (16:07)
[2023-09-22 05:48] LABS: Basophils # (auto) 0.05 K/uL (0.00-0.20); Basophils % (auto) 0.7 %; Eosinophils # (auto) 0.19 K/uL (0.00-0.50); Eosinophils % (auto) 2.7 %; Hematocrit (blood only) 43.3 % (37.0-47.0); Immature Granulocytes # (auto) 0.02 K/uL (0.01-0.20); Immature Granulocytes % (auto) 0.3 %; Lymphocytes # (auto) 3.01 K/uL (1.20-3.40); Lymphocytes % (auto) 42.8 %; Mean Corpuscular Hemoglobin 29.2 pg (25.0-34.0); Mean Corpuscular Hgb Conc 34.6 g/dL (32.0-36.0); Mean Corpuscular Volume 84.4 fL (80.0-100.0); Mean Platelet Volume 10.8 fL (9.4-12.4); Monocytes # (auto) 0.71 K/uL (0.11-0.59); Monocytes % (auto) 10.1 %; Neutrophils # (auto) 3.05 K/uL (1.40-6.50); Neutrophils % (auto) 43.4 %; Platelet Count 230 K/uL (130-400); RDW Coefficient of Variation 13.3 % (11.5-14.5); RDW Standard Deviation 41.1 fL (36.4-46.3); Red Blood Count 5.13 M/uL (4.20-5.40); White Blood Count 7.03 K/ul (4.8-10.8)
[2023-09-22 06:02] LABS: BUN Creatinine Ratio 20.6 (10-20); Calcium 8.9 mg/dl (8.6-10.3); Chol HDL Ratio 4.2 (0-5); Creatinine Clr Calc Pharmacy 99.7 ml/min; Est GFR (African American) 111.8 ml/min; Est GFR (Non-African American) 96.4 ml/min; Magnesium 1.9 mg/dl (1.7-2.4); Phosphorus 4.2 mg/dl (2.5-4.9); Potassium 3.8 mmol/L (3.5-5.1)
[2023-09-22 06:17] LABS: Thyroid Stimulating Hormone 1.598 uIu/ml (0.300-4.500)
[2023-09-22 07:26] LABS: Estimated Average Glucose 105 mg/dl; Hemoglobin A1C 5.3 % (4.5-5.6)
[2023-09-22] MEDS: DULoxetine HCL 30 MG CAP PO SCH (08:08)
[2023-09-22] MEDS: ENOXAPARIN INJ 40 MG/0.4 ML SYR SQ SCH (08:09)
[2023-09-22] MEDS: VALSARTAN 80 MG TAB PO SCH (08:09)
[2023-09-22] MEDS: ACETAMINOPHEN 500 MG TAB PO PRN (08:11)
[2023-09-22] MEDS: ASPIRIN 81 MG CHEW PO SCH (08:11)
[2023-09-22] MEDS: CYANOCOBALAMIN (B-12) 100 MCG TABLET PO SCH (10:37)
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
[2023-09-22] MEDS: METOPROLOL SUCC 50MG EXT REL TAB PO SCH (20:47)
[2023-09-23 06:39] LABS: Hematocrit (blood only) 45.1 % (37.0-47.0); Hemoglobin 15.4 g/dl (12.0-16.0); Mean Corpuscular Hemoglobin 28.9 pg (25.0-34.0); Mean Corpuscular Hgb Conc 34.1 g/dL (32.0-36.0); Mean Corpuscular Volume 84.6 fL (80.0-100.0); Mean Platelet Volume 10.8 fL (9.4-12.4); Platelet Count 235 K/uL (130-400); RDW Coefficient of Variation 13.1 % (11.5-14.5); RDW Standard Deviation 40.2 fL (36.4-46.3); Red Blood Count 5.33 M/uL (4.20-5.40); White Blood Count 6.65 K/ul (4.8-10.8)
[2023-09-23 07:21] LABS: BUN Creatinine Ratio 15.9 (10-20); Est GFR (African American) 83.9 ml/min; Est GFR (Non-African American) 72.4 ml/min; Potassium 4.6 mmol/L (3.5-5.1)
[2023-09-23] MEDS ORDERED: ATORVASTATIN 40 MG TAB PO SCH (09:00)
[2023-09-23] MEDS: DULoxetine HCL 30 MG CAP PO SCH (09:08)
[2023-09-23] MEDS: VALSARTAN 80 MG TAB PO SCH (09:08)
[2023-09-23] MEDS: CYANOCOBALAMIN (B-12) 100 MCG TABLET PO SCH (09:08)
[2023-09-23] MEDS: ENOXAPARIN INJ 40 MG/0.4 ML SYR SQ SCH (09:09)
[2023-09-23] MEDS: ASPIRIN 81 MG CHEW PO SCH (09:11)
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
--- OUTSIDE RECORDS SUMMARY | 2023-09-23 11:48 | External Medical Summary | Continuity of Care Document ---
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 Name Role Phone Paula Palomares Primary Care Physician [phone] [id number] Date(s): 09/20/23 - 09/20/23 [facility] [address] [place], [place] [id number] [place] Discharge Disposition: Home or Self Care Attending Physician: DO Chase Kelsey Anne Referring Physician: MD Lorena, Martín Mackey Social History Social History Type Response Sex Female Patient Care team information Care Team Personnel Name: MD Palomares H Jeanne Position: Referring Member Role: Primary Care Provider Address: Address: [address] [place] [id number] Care Team Related Persons Name: MONIK SOL Address: home [address] [place], [place] [id number]
== END 2023-09-23 14:00 | disposition home or self-care (01) | DRG 72 ==
LOC: EDINP 16:27 → ED 16:27 → SUATTDRO 18:55 → 4W 09-21 07:03